=== PATIENT | female | born 1980 | race Caucasian/White ===

== ENCOUNTER 2019-01-25 08:28 | Day surgery (SDC) | payer BC ==
[2019-01-25 09:21] VITALS: TEMP 98; O2SAT 100
[2019-01-25] MEDS ORDERED: Propofol 10 mg/ml Inj (20 ML) ONE ×2 (10:27→10:39)
[2019-01-25] MEDS ORDERED: Lactated Ringer's 500 ML IV ONE ×2 (10:27)
[2019-01-25 10:31] VITALS: PULSE 80; RESP 14
[2019-01-25 11:20] VITALS: BP 122/67
== END 2019-01-25 11:29 | disposition home or self-care (01) ==
LOC: C.ENDO 08:28
PROVIDERS: ATTEND Internal Medicine Gastroenterology
DX: Z12.11 Encounter for screening for malignant neoplasm of colon (principal); Z80.0 Family history of malignant neoplasm of digestive organs; K64.1 Second degree hemorrhoids; K57.30 Diverticulosis of large intestine without perforation or abscess without bleeding
CPT/HCPCS: 84703; G0105; J2001; J2704; J7120